=== PATIENT | female | born 1990 | race Caucasian/White ===

== ENCOUNTER 2019-07-09 22:43 | Outpatient (CLI) | payer SELFPAY ==
[2019-07-10 01:22] VITALS: BP 130/60
== END 2019-07-10 04:15 | disposition home or self-care (01) ==
LOC: TRG 22:43
PROVIDERS: ATTEND Obstetrics & Gynecology
DX: O47.1 False labor at or after 37 completed weeks of gestation (principal); Z3A.38 38 weeks gestation of pregnancy
CPT/HCPCS: 59025; Q0177

== ENCOUNTER 2019-07-10 19:20 | Outpatient (CLI) | payer SELFPAY ==
[2019-07-10 20:39] VITALS: BP 132/71
== END 2019-07-10 21:48 | disposition home or self-care (01) ==
LOC: TRG 19:20
PROVIDERS: ATTEND Obstetrics & Gynecology
DX: O47.1 False labor at or after 37 completed weeks of gestation (principal); Z3A.38 38 weeks gestation of pregnancy
CPT/HCPCS: 59025